=== PATIENT | male | born 1960 | race African-American/Black ===

== ENCOUNTER 2021-11-24 13:59 | Emergency (ER) | payer BC ==
[~2021-11-24] VITALS: Ht 182.9 cm; Wt 102.1 kg
[~2021-11-24 13:59] MED LIST: NOHOMEMEDICATIONS
[2021-11-24] MEDS ORDERED: HYDROCODON-ACE1 EAC7 PO (15:50)
[2021-11-24] MEDS ORDERED: CEPHALEXIN500 MG PO (15:50)
[2021-11-24 16:56] VITALS: BP 155/84
== END 2021-11-24 16:57 | disposition home or self-care (01) ==
LOC: ER 13:59
DX: S91.011A Laceration without foreign body, right ankle, initial encounter (principal); F12.90 Cannabis use, unspecified, uncomplicated; Z90.79 Acquired absence of other genital organ(s); W23.0XXA Caught, crushed, jammed, or pinched between moving objects, initial encounter; Y93.53 Activity, golf; Y92.89 Other specified places as the place of occurrence of the external cause; Y99.8 Other external cause status